=== PATIENT | female | born 1970 | race African-American/Black ===

== ENCOUNTER 2017-03-04 15:47 | Inpatient (IN) | payer SELFPAY ==
[~2017-03-04] VITALS: Ht 167.6 cm; Wt 110.7 kg
[2017-03-04] MEDS ORDERED: IV NORMAL SALINE 1000ML BAG 1,000 ML IV ONE ×2 (16:15→20:30)
[2017-03-04 16:34] LABS: BILIRUBIN,URINE NEGATIVE (NEG); GLUCOSE,URINE NEGATIVE (NEG); NITRITE,URINE NEGATIVE (NEG); PROTEIN,URINE NEGATIVE (NEG-TRACE)
[2017-03-04 16:41] LABS: BASO # 0.1 x10^3/uL (0.0-0.2); BASO % 1 % (0-3); EOS % 1 % (0-3); HEMATOCRIT 25.7 % (36.0-47.0); HEMOGLOBIN 7.4 g/dL (12.0-15.5); LYMPH # 2.3 x10^3/uL (1.0-4.8); LYMPH % 31 % (24-48); MEAN CORPUSCULAR HEMOGLOBIN 17 pg (25-35); MEAN CORPUSCULAR HGB CONC 29 g/dL (31-37); MEAN CORPUSCULAR VOLUME 60 fL (79-100); MONO % 9 % (0-9); NEUT % 58 % (31-73); PLATELET COUNT 523 x10^3/uL (140-400); RED BLOOD COUNT 4.32 x10^6/uL (3.50-5.40); WHITE BLOOD COUNT 7.5 x10^3/uL (4.0-11.0)
--- NOTE | 2017-03-04 16:46 | RAD ---
Examination: Single frontal view of the chest History: history of dizziness Comparison: None available Findings: The cardiomediastinal silhouette grossly appears unremarkable. There is no acute infiltrate or visualized pneumothorax. Impression: No acute cardiopulmonary findings.
[2017-03-04 16:48] LABS: BACTERIA,URINE MOD /HPF (0-FEW); RBC,URINE 0 /HPF (0-2); SQUAMOUS EPITHELIAL CELL,UR MANY /LPF
[2017-03-04 17:18] LABS: ANISOCYTOSIS SLIGHT; HYPOCHROMIA MOD; MICROCYTOSIS MOD; PLT ESTIMATE INCREASED (ADEQUATE); POIKILOCYTOSIS SLIGHT; POLYCHROMASIA SLIGHT
[2017-03-04 17:19] LABS: OVALOCYTES PRESENT; TEAR DROP CELLS PRESENT
--- NOTE | 2017-03-04 17:21 | PHYS DOC ---
Past Medical History Past Medical History: No Pertinent History Past Surgical History: Tubal ligation Alcohol Use: Occasionally Drug Use: Marijuana Adult General Chief Complaint Chief Complaint: DIZZY/LIGHT HEADED HPI HPI 46-year-old female with no significant past medical history now complaining of intermittent lightheadedness/near syncope with nausea and occasional diaphoresis. Patient's been having these symptoms over the last several months, but has been worsening recently. It commonly happens after standing up. She has no exertional symptoms specifically no exertional chest pain. She was evaluated for it within the last several months and results were unremarkable. Patient is not having chest pain , palpitations, or shortness of breath. She has no headache or stiff neck. No fevers chills sweats or shaking chills. She reports normal bowel bladder habits and no abdominal pain. She does report heavier than normal periods recently passing multiple clots. She is not currently menstruating. Patient is not anticoagulated and has no history of coagulopathy. Review of Systems Review of Systems Constitutional: Denies fever or chills [] Eyes: Denies change in visual acuity, redness, or eye pain [] HENT: Denies nasal congestion or sore throat [] Respiratory: Denies cough or shortness of breath [] Cardiovascular: No additional information not addressed in HPI [] GI: Denies abdominal pain, nausea, vomiting, bloody stools or diarrhea [] : Denies dysuria or hematuria [] Musculoskeletal: Denies back pain or joint pain [] Integument: Denies rash or skin lesions [] Neurologic: Denies headache, focal weakness or sensory changes [] Endocrine: Denies polyuria or polydipsia [] Current Medications Current Medications Current Medications Medications (Trade) Dose Ordered Sig/Ruiz Start Time Stop Time Status Last Admin Dose Admin Sodium Chloride 1,000 ml @ 999 mls/hr 1X ONCE 03/04/17 20:30 03/04/17 21:30 03/04/17 20:55 999 MLS/HR Allergies Allergies Allergies Coded Allergies Type Severity Reaction Last Updated Verified Penicillins Allergy Intermediate Rash 03/04/17 Yes Physical Exam Physical Exam Appearing patient no acute distress mucous membranes moist no tachycardia clear lungs benign abdomen normal remedies nonfocal neuro, mild subconjunctival pallor Constitutional: Well developed, well nourished, no acute distress, non-toxic appearance. [] HENT: Normocephalic, atraumatic, bilateral external ears normal, oropharynx moist, no oral exudates, nose normal. [] Eyes: PERRLA, EOMI, conjunctiva mildly pale, no discharge. [] Neck: Normal range of motion, no tenderness, supple, no stridor. [] Cardiovascular:Heart rate regular rhythm, no murmur [] Lungs & Thorax: Bilateral breath sounds clear to auscultation [] Abdomen: Bowel sounds normal, soft, no tenderness, no masses, no pulsatile masses. [] Skin: Warm, dry, no erythema, no rash. [] Back: No tenderness, no CVA tenderness. [] Extremities: No tenderness, no cyanosis, no clubbing, ROM intact, no edema. [] Neurologic: Alert and oriented X 3, normal motor function, normal sensory function, no focal deficits noted. [] Psychologic: Affect normal, judgement normal, mood normal. [] Current Patient Data Vital Signs Vital Signs Date Time Temp Pulse Resp B/P (MAP) Pulse Ox O2 Delivery O2 Flow Rate FiO2 03/04/17 15:58 98.4 79 18 145/68 (93) 99 Room Air 98.4 Lab Values Laboratory Tests Test 03/04/17 10:55 03/04/17 15:59 03/04/17 16:15 03/04/17 17:25 Urine Color Yellow Urine Clarity Cloudy Urine pH 6.0 Urine Specific [place] 1.020 Urine Protein Negative mg/dL (NEG-TRACE) Urine Glucose (UA) Negative mg/dL (NEG) Urine Ketones (Stick) Negative mg/dL (NEG) Urine Blood Negative (NEG) Urine Nitrite Negative (NEG) Urine Bilirubin Negative (NEG) Urine Urobilinogen Dipstick 1.0 mg/dL (0.2 mg/dL) Urine Leukocyte Esterase Moderate (NEG) Urine RBC 0 /HPF (0-2) Urine WBC 11-20 /HPF (0-4) Urine Squamous Epithelial Cells Many /LPF Urine Bacteria Mod /HPF (0-FEW) Urine Mucus Slight /LPF POC Urine HCG, Qualitative Hcg negative (Negative) White Blood Count 7.5 x10^3/uL (4.0-11.0) Red Blood Count 4.32 x10^6/uL (3.50-5.40) Hemoglobin 7.4 g/dL (12.0-15.5) L Hematocrit 25.7 % (36.0-47.0) L Mean Corpuscular Volume 60 fL (79-100) L Mean Corpuscular Hemoglobin 17 pg (25-35) L Mean Corpuscular Hemoglobin Concent 29 g/dL (31-37) L Red Cell Distribution Width 19.0 % (11.5-14.5) H Platelet Count 523 x10^3/uL (140-400) H Neutrophils (%) (Auto) 58 % (31-73) Lymphocytes (%) (Auto) 31 % (24-48) Monocytes (%) (Auto) 9 % (0-9) Eosinophils (%) (Auto) 1 % (0-3) Basophils (%) (Auto) 1 % (0-3) Neutrophils # (Auto) 4.4 x10^3uL (1.8-7.7) Lymphocytes # (Auto) 2.3 x10^3/uL (1.0-4.8) Monocytes # (Auto) 0.7 x10^3/uL (0.0-1.1) Eosinophils # (Auto) 0.1 x10^3/uL (0.0-0.7) Basophils # (Auto) 0.1 x10^3/uL (0.0-0.2) Platelet Estimate Increased (ADEQUATE) Large Platelets Present Polychromasia Slight Hypochromasia Mod Poikilocytosis Slight Anisocytosis Slight Microcytosis Mod Tear Drop Cells Present Ovalocytes Present Sodium Level 138 mmol/L (136-145) Potassium Level 4.0 mmol/L (3.5-5.1) Chloride Level 102 mmol/L (98-107) Carbon Dioxide Level 28 mmol/L (21-32) Anion Gap 8 (6-14) Blood Urea Nitrogen 9 mg/dL (7-20) Creatinine 0.6 mg/dL (0.6-1.0) Estimated GFR (Cockcroft-Gault) 129.1 BUN/Creatinine Ratio 15 (6-20) Glucose Level 103 mg/dL (70-99) H Calcium Level 9.0 mg/dL (8.5-10.1) Total Bilirubin 0.2 mg/dL (0.2-1.0) Aspartate Amino Transferase (AST) 16 U/L (15-37) Alanine Aminotransferase (ALT) 11 U/L (14-59) L Alkaline Phosphatase 71 U/L (46-116) Troponin I Quantitative < 0.017 ng/mL (0.000-0.055) Total Protein 8.1 g/dL (6.4-8.2) Albumin 3.5 g/dL (3.4-5.0) Albumin/Globulin Ratio 0.8 (1.0-1.7) L Thyroid Stimulating Hormone (TSH) 0.877 uIU/mL (0.358-3.74) Laboratory Tests 03/04/17 16:15 Laboratory Tests 03/04/17 17:25 EKG EKG Normal sinus rhythm at 73 left axis deviation no STEMI interpreted by me[] Radiology/Procedures Radiology/Procedures Chest x-ray no acute disease interpreted by me . Specifically No mediastinal mass Course & Med Decision Making Course & Med Decision Making Pertinent Labs and Imaging studies reviewed. (See chart for details) Signs and symptoms consistent with orthostasis. Full workup pending to rule out contributory etiology EKG unremarkable with normal sinus rhythm at 73. Patient hemodynamically stable. Hemoglobin result 7.4. No history of black or bloody stool. Brown stool on rectal exam done with nurse Jessica present. Results of Hemoccult pending in the lab. Patient does not have contraindications for transfusion and given symptomatic anemia of 7.4 pre-hydration anticipate equilibration below 7 and will initiate blood transfusion. Patient verbally consents to this and she has no anabaptism convictions that would preclude administration of blood. Case discussed with Dr. Drew Moreno hospitalist on-call is aware of history and findings and agrees with inpatient admission to a telemetry bed bleeding workup of severe anemia, transfusion, and further treatment as needed Critical care 35 minutes Dragon Disclaimer Dragon Disclaimer This electronic medical record was generated, in whole or in part, using a voice recognition dictation system. Departure Departure Impression: Primary Impression: Dizziness Additional Impressions: Orthostasis Severe anemia Near syncope Disposition: 09 ADMITTED INPATIENT Admitting Physician: Miranda Moreno Condition: STABLE Referrals: UNKNOWN PCP NAME (PCP) Problem Qualifiers SIENNA BRADLEY MD Mar 04, 2017 17:21
[2017-03-04 17:52] LABS: CREATININE 0.6 mg/dL (0.6-1.0); GFR 129.1
[2017-03-04 17:58] LABS: ALBUMIN 3.5 g/dL (3.4-5.0); ALBUMIN/GLOBULIN RATIO 0.8 (1.0-1.7); TOTAL BILIRUBIN 0.2 mg/dL (0.2-1.0); TOTAL PROTEIN 8.1 g/dL (6.4-8.2)
--- NOTE | 2017-03-04 18:14 | EKG ---
[facility] [address] [place] [address] Test Date: 2017-03-04 Test Time: 16:05:21 Pat Name: GEN HUGGINS Department: Room: Gender: F Manager Implementation: : 1970 Requested By: SIENNA BRADLEY Order Number: [id number] Reading MD: Rebekah Deleon Measurements Intervals [place] Rate: 73 P: 45 [place]: 158 QRS: -14 QRSD: 86 T: 20 QT: 384 QTc: 427 Interpretive Statements SINUS RHYTHM LEFTWARD AXIS NORMAL ECG Electronically Signed On 03-07-2017 16:06:53 CDT by Rebekah Deleon
[2017-03-04 22:09] LABS: PROTHROMBIN TIME PATIENT 12.6 SEC (11.7-14.0)
[2017-03-04 23:15] VITALS: BP 137/39
[2017-03-05] VITALS (9 sets, daily range): BP systolic 105–137; BP diastolic 60–89
[2017-03-05 03:44] LABS: HEMATOCRIT 24.6 % (36.0-47.0); HEMOGLOBIN 7.3 g/dL (12.0-15.5); RED BLOOD COUNT 3.83 x10^6/uL (3.50-5.40); RED CELL DISTRIBUTION WIDTH 20.9 % (11.5-14.5); WHITE BLOOD COUNT 6.7 x10^3/uL (4.0-11.0)
[2017-03-05 07:08] LABS: NEG OBC FOB NEG; POS OBC FOB POS
[2017-03-05 08:44] LABS: HEMATOCRIT 25.6 % (36.0-47.0); HEMOGLOBIN 7.7 g/dL (12.0-15.5); RED BLOOD COUNT 4.01 x10^6/uL (3.50-5.40); RED CELL DISTRIBUTION WIDTH 21.5 % (11.5-14.5); WHITE BLOOD COUNT 8.6 x10^3/uL (4.0-11.0)
[2017-03-05] MEDS ORDERED: ONDANSETRON PF 4 MG/2 ML VIAL. IV PRN (09:45)
[2017-03-05] MEDS ORDERED: ACETAMINOPHEN 500 MG TABLET PO PRN (09:45)
[2017-03-05 10:27] LABS: % SAT IRON 4 % (15-34); IRON,SERUM 16 ug/dL (50-170)
--- NOTE | 2017-03-05 10:47 | RAD ---
INDICATION: Menorrhagia COMPARISON: None. TECHNIQUE: Grayscale and color ultrasound images uterus and adnexa. FINDINGS: Uterus: 14.8 x 9.3 x 9.1 cm. Endometrial Stripe: 8 mm. Right Ovary: 2.6 x 2.4 x 2.4 cm. Left Ovary: 4.1 x 2.1 x 1.3 cm. At the anterior aspect of the uterus there is a large heterogenous masslike structure measuring 98 x 84 x 68 mm. In addition there is a smaller masslike structure posteriorly measuring 22 x 22 mm. IMPRESSION: 1. There are couple of masslike structure seen within the uterus. Could be from uterine fibroids.
--- NOTE | 2017-03-05 11:23 | PDOC1 ---
History and Physical Date of Admission Date of Admission DATE: 03/05/17 TIME: 11:16 Identification/Chief Complaint Chief Complaint dizzy, lightheaded, weak Problems: Source Source: Caregiver, Chart review, Patient History of Present Illness History of Present Illness 46 y.o AA female, no meds at home, otherwise healthy, admits to maybe mos of dizzy, lightheadedness, never sough medical help, Sxs got worse wendy when assuming upright position, so went to ER and hgb 7.4, news to her, STool occult neg, Admits to heavy periods, 7 days duration, uses tampons, passes clots, NO hx blood dyscrasia in family, Got a unit of blood already at ER, hgb 7.7 I CANNOT DO MCKAYLA work up or SICKle cell work up bec already got blood. I will do pelvic SONO, consult obgyne and rpt HH ascencion Claims she feels better, if still symptomatic will transfuse more MCV 60s Past sx:tubal ligation, already has completed family and is uninterested in having kids anymore Past Medical History Cardiovascular: No pertinent hx Pulmonary: No pertinent hx GI: No pertinent hx Heme/Onc: No pertinent hx Psych: No pertinent hx Rheumatologic: No pertinent hx Infectious disease: No pertinent hx ENT: No pertinent hx Renal/: No pertinent hx Endocrine: No pertinent hx Dermatology: No pertinent hx Past Surgical History Past Surgical History: Tubal Ligation Family History Family History: No Significant Social History Smoke: No ALCOHOL: none Drugs: None Current Problem List Problem List Problems Medical Problems: (1) Dizziness Status: Acute (2) Near syncope Status: Acute (3) Orthostasis Status: Acute (4) Orthostatic hypotension Status: Acute (5) Severe anemia Status: Acute Problems: Current Medications Current Medications Current Medications Sodium Chloride 1,000 ml @ 999 mls/hr 1X ONCE IV Last administered on 16:34; Start 03/04/17 at 16:15; Stop 03/04/17 at 17:16; Status DC Sodium Chloride 1,000 ml @ 999 mls/hr 1X ONCE IV Last administered on 20:55; Start 03/04/17 at 20:30; Stop 03/04/17 at 21:30; Status DC Acetaminophen (Tylenol) 500 mg PRN Q6HRS PRN PO MILD PAIN / TEMP; Start at 09:45 Ondansetron HCl (Zofran) 4 mg PRN Q6HRS PRN IV NAUSEA/VOMITING; Start at 09:45 Allergies Allergies: Coded Allergies: Penicillins (Verified Allergy, Intermediate, Rash, 03/04/17) ROS Review of System as per HPI , all 14 pt reviewed, neg Physical Exam General: Alert, Oriented X3, Cooperative, No acute distress HEENT: Atraumatic, PERRLA, EOMI Lungs: Clear to auscultation, Normal air movement Heart: S1S2, RRR, no thrills, no rubs, no gallops, no murmurs Cardiovascular: S1, S2 Breasts: Normal, Rt breast nml w/o mass, Lt breast nml w/o mass, Nipples normal Abdomen: Normal bowel sounds, Soft, No tenderness, No hepatosplenomegaly, No masses Rectal Exam: not examined PELVIC: Nml ext genitalia Extremities: No clubbing, No cyanosis, No edema, Normal pulses, No tenderness/ swelling Skin: No rashes, No breakdown, No significant lesion Neuro: Normal gait, Normal speech, Strength at 5/5 X4 ext, Normal tone, Sensation intact, Cranial nerves 3-12 NL, Reflexes 2+ Psych/Mental Status: Mental status NL, Mood NL Vitals Vitals Vital Signs Date Time Temp Pulse Resp B/P (MAP) Pulse Ox O2 Delivery O2 Flow Rate FiO2 03/05/17 07:00 98.1 72 18 111/63 (79) 97 Room Air 98.1 Labs Labs Laboratory Tests Test 03/04/17 10:55 03/04/17 15:59 03/04/17 16:01 03/04/17 16:15 Urine Color Yellow Urine Clarity Cloudy Urine pH 6.0 Urine Specific [place] 1.020 Urine Protein Negative mg/dL (NEG-TRACE) Urine Glucose (UA) Negative mg/dL (NEG) Urine Ketones (Stick) Negative mg/dL (NEG) Urine Blood Negative (NEG) Urine Nitrite Negative (NEG) Urine Bilirubin Negative (NEG) Urine Urobilinogen Dipstick 1.0 mg/dL (0.2 mg/dL) Urine Leukocyte Esterase Moderate (NEG) Urine RBC 0 /HPF (0-2) Urine WBC 11-20 /HPF (0-4) Urine Squamous Epithelial Cells Many /LPF Urine Bacteria Mod /HPF (0-FEW) Urine Mucus Slight /LPF Bedside Urine HCG, Qualitative Hcg negative (Negative) Prothrombin Time 12.6 SEC (11.7-14.0) Prothromb Time International Ratio 1.0 (0.8-1.1) Activated Partial Thromboplast Time 27 SEC (24-38) White Blood Count 7.5 x10^3/uL (4.0-11.0) Red Blood Count 4.32 x10^6/uL (3.50-5.40) Hemoglobin 7.4 g/dL (12.0-15.5) Hematocrit 25.7 % (36.0-47.0) Mean Corpuscular Volume 60 fL (79-100) Mean Corpuscular Hemoglobin 17 pg (25-35) Mean Corpuscular Hemoglobin Concent 29 g/dL (31-37) Red Cell Distribution Width 19.0 % (11.5-14.5) Platelet Count 523 x10^3/uL (140-400) Neutrophils (%) (Auto) 58 % (31-73) Lymphocytes (%) (Auto) 31 % (24-48) Monocytes (%) (Auto) 9 % (0-9) Eosinophils (%) (Auto) 1 % (0-3) Basophils (%) (Auto) 1 % (0-3) Neutrophils # (Auto) 4.4 x10^3uL (1.8-7.7) Lymphocytes # (Auto) 2.3 x10^3/uL (1.0-4.8) Monocytes # (Auto) 0.7 x10^3/uL (0.0-1.1) Eosinophils # (Auto) 0.1 x10^3/uL (0.0-0.7) Basophils # (Auto) 0.1 x10^3/uL (0.0-0.2) Platelet Estimate Increased (ADEQUATE) Large Platelets Present Polychromasia Slight Hypochromasia Mod Poikilocytosis Slight Anisocytosis Slight Microcytosis Mod Tear Drop Cells Present Ovalocytes Present Test 03/04/17 17:25 03/05/17 00:00 03/05/17 03:20 03/05/17 08:40 Sodium Level 138 mmol/L (136-145) Potassium Level 4.0 mmol/L (3.5-5.1) Chloride Level 102 mmol/L (98-107) Carbon Dioxide Level 28 mmol/L (21-32) Anion Gap 8 (6-14) Blood Urea Nitrogen 9 mg/dL (7-20) Creatinine 0.6 mg/dL (0.6-1.0) Estimated GFR (Cockcroft-Gault) 129.1 BUN/Creatinine Ratio 15 (6-20) Glucose Level 103 mg/dL (70-99) Calcium Level 9.0 mg/dL (8.5-10.1) Total Bilirubin 0.2 mg/dL (0.2-1.0) Aspartate Amino Transf (AST/SGOT) 16 U/L (15-37) Alanine Aminotransferase (ALT/SGPT) 11 U/L (14-59) Alkaline Phosphatase 71 U/L (46-116) Troponin I Quantitative < 0.017 ng/mL (0.000-0.055) Total Protein 8.1 g/dL (6.4-8.2) Albumin 3.5 g/dL (3.4-5.0) Albumin/Globulin Ratio 0.8 (1.0-1.7) Thyroid Stimulating Hormone (TSH) 0.877 uIU/mL (0.358-3.74) Stool Occult Blood Negative (NEG) White Blood Count 6.7 x10^3/uL (4.0-11.0) 8.6 x10^3/uL (4.0-11.0) Red Blood Count 3.83 x10^6/uL (3.50-5.40) 4.01 x10^6/uL (3.50-5.40) Hemoglobin 7.3 g/dL (12.0-15.5) 7.7 g/dL (12.0-15.5) Hematocrit 24.6 % (36.0-47.0) 25.6 % (36.0-47.0) Mean Corpuscular Volume 64 fL (79-100) 64 fL (79-100) Mean Corpuscular Hemoglobin 19 pg (25-35) 19 pg (25-35) Mean Corpuscular Hemoglobin Concent 30 g/dL (31-37) 30 g/dL (31-37) Red Cell Distribution Width 20.9 % (11.5-14.5) 21.5 % (11.5-14.5) Platelet Count 387 x10^3/uL (140-400) 402 x10^3/uL (140-400) Iron Level 16 ug/dL (50-170) Total Iron Binding Capacity 387 ug/dL (250-450) Iron Saturation 4 % (15-34) Laboratory Tests Test 03/04/17 15:59 03/04/17 16:01 03/04/17 16:15 03/04/17 17:25 Bedside Urine HCG, Qualitative Hcg negative (Negative) Prothrombin Time 12.6 SEC (11.7-14.0) Prothromb Time International Ratio 1.0 (0.8-1.1) Activated Partial Thromboplast Time 27 SEC (24-38) White Blood Count 7.5 x10^3/uL (4.0-11.0) Red Blood Count 4.32 x10^6/uL (3.50-5.40) Hemoglobin 7.4 g/dL (12.0-15.5) Hematocrit 25.7 % (36.0-47.0) Mean Corpuscular Volume 60 fL (79-100) Mean Corpuscular Hemoglobin 17 pg (25-35) Mean Corpuscular Hemoglobin Concent 29 g/dL (31-37) Red Cell Distribution Width 19.0 % (11.5-14.5) Platelet Count 523 x10^3/uL (140-400) Neutrophils (%) (Auto) 58 % (31-73) Lymphocytes (%) (Auto) 31 % (24-48) Monocytes (%) (Auto) 9 % (0-9) Eosinophils (%) (Auto) 1 % (0-3) Basophils (%) (Auto) 1 % (0-3) Neutrophils # (Auto) 4.4 x10^3uL (1.8-7.7) Lymphocytes # (Auto) 2.3 x10^3/uL (1.0-4.8) Monocytes # (Auto) 0.7 x10^3/uL (0.0-1.1) Eosinophils # (Auto) 0.1 x10^3/uL (0.0-0.7) Basophils # (Auto) 0.1 x10^3/uL (0.0-0.2) Platelet Estimate Increased (ADEQUATE) Large Platelets Present Polychromasia Slight Hypochromasia Mod Poikilocytosis Slight Anisocytosis Slight Microcytosis Mod Tear Drop Cells Present Ovalocytes Present Sodium Level 138 mmol/L (136-145) Potassium Level 4.0 mmol/L (3.5-5.1) Chloride Level 102 mmol/L (98-107) Carbon Dioxide Level 28 mmol/L (21-32) Anion Gap 8 (6-14) Blood Urea Nitrogen 9 mg/dL (7-20) Creatinine 0.6 mg/dL (0.6-1.0) Estimated GFR (Cockcroft-Gault) 129.1 BUN/Creatinine Ratio 15 (6-20) Glucose Level 103 mg/dL (70-99) Calcium Level 9.0 mg/dL (8.5-10.1) Total Bilirubin 0.2 mg/dL (0.2-1.0) Aspartate Amino Transf (AST/SGOT) 16 U/L (15-37) Alanine Aminotransferase (ALT/SGPT) 11 U/L (14-59) Alkaline Phosphatase 71 U/L (46-116) Troponin I Quantitative < 0.017 ng/mL (0.000-0.055) Total Protein 8.1 g/dL (6.4-8.2) Albumin 3.5 g/dL (3.4-5.0) Albumin/Globulin Ratio 0.8 (1.0-1.7) Thyroid Stimulating Hormone (TSH) 0.877 uIU/mL (0.358-3.74) Test 03/05/17 00:00 03/05/17 03:20 03/05/17 08:40 Stool Occult Blood Negative (NEG) White Blood Count 6.7 x10^3/uL (4.0-11.0) 8.6 x10^3/uL (4.0-11.0) Red Blood Count 3.83 x10^6/uL (3.50-5.40) 4.01 x10^6/uL (3.50-5.40) Hemoglobin 7.3 g/dL (12.0-15.5) 7.7 g/dL (12.0-15.5) Hematocrit 24.6 % (36.0-47.0) 25.6 % (36.0-47.0) Mean Corpuscular Volume 64 fL (79-100) 64 fL (79-100) Mean Corpuscular Hemoglobin 19 pg (25-35) 19 pg (25-35) Mean Corpuscular Hemoglobin Concent 30 g/dL (31-37) 30 g/dL (31-37) Red Cell Distribution Width 20.9 % (11.5-14.5) 21.5 % (11.5-14.5) Platelet Count 387 x10^3/uL (140-400) 402 x10^3/uL (140-400) Iron Level 16 ug/dL (50-170) Total Iron Binding Capacity 387 ug/dL (250-450) Iron Saturation 4 % (15-34) VTE Prophylaxis Ordered VTE Prophylaxis Devices: Contraindicated VTE Pharmacological Prophylaxi: Contraindicated Assessment/Plan Assessment/Plan 1. Symptomatic anemia, microcytic 2. MEnorrhagia 3. Obesity BMI 39 PLAN: Pelvic sono OB gyne consult WOuld start ferrous supplements HH ascencion See if she gets symptomatic with her walk today, transfuse if this happens dw pt and family and RN at bedside MIKAEL RAMOS MD Mar 05, 2017 11:22
[2017-03-05] MEDS: FERROUS SULFATE 325 MG TABLET. PO SCH (11:42)
--- NOTE | 2017-03-05 14:37 | PDOC2 ---
CONSULT Date of Consult Date of Consult DATE: 03/05/17 TIME: 14:30 Reason for Consult Reason for Consult: vaginal bleeding Referring Physician Referring Physician: Dr. Martel Identification/Chief Complaint Chief Complaint Dizziness Problems: Source Source: Chart review, Patient History of Present Illness Reason for Visit: 46 y/o presented to ED with c/o severe dizziness and fatigue for the past few days. She reports heavy menses with passage of large blood clots for past 5 years that has worsened in the last year. She has h/o BTL for control. She was given 1 Unit PRBC's for severe anemia. LMP was 02/26/17. No vaginal bleeding today. Past Medical History Cardiovascular: No pertinent hx Pulmonary: No pertinent hx GI: No pertinent hx Heme/Onc: No pertinent hx Psych: No pertinent hx Rheumatologic: No pertinent hx Infectious disease: No pertinent hx ENT: No pertinent hx Renal/: No pertinent hx Endocrine: No pertinent hx Dermatology: No pertinent hx Past Surgical History Past Surgical History: Tubal Ligation Family History Family History: No Significant Social History No ALCOHOL: none Drugs: None Current Problem List Problem List Problems Medical Problems: (1) Dizziness Status: Acute (2) Near syncope Status: Acute (3) Orthostasis Status: Acute (4) Orthostatic hypotension Status: Acute (5) Severe anemia Status: Acute Current Medications Current Medications Current Medications Sodium Chloride 1,000 ml @ 999 mls/hr 1X ONCE IV Last administered on 16:34; Start 03/04/17 at 16:15; Stop 03/04/17 at 17:16; Status DC Sodium Chloride 1,000 ml @ 999 mls/hr 1X ONCE IV Last administered on 20:55; Start 03/04/17 at 20:30; Stop 03/04/17 at 21:30; Status DC Acetaminophen (Tylenol) 500 mg PRN Q6HRS PRN PO MILD PAIN / TEMP Last administered on 03/05/17 11:42; Start 03/05/17 at 09:45 Ondansetron HCl (Zofran) 4 mg PRN Q6HRS PRN IV NAUSEA/VOMITING; Start at 09:45 Ferrous Sulfate (Feosol) 325 mg DAILYWBKFT PO Last administered on 03/05/17 11:42; Start 03/05/17 at 11:30 Allergies Allergies: Coded Allergies: Penicillins (Verified Allergy, Intermediate, Rash, 03/04/17) ROS General: YES: Fatigue, Malaise, No: Chills, Night Sweats, Appetite, Other PSYCHOLOGICAL ROS: No: Anxiety, Behavioral Disorder, Concentration difficultie , Decreased libido, Depression, Disorientation, Hallucinations, Hostility, Irritablity, Memory difficulties, Mood Swings, Obsessive thoughts, Physical abuse, Sexual abuse, Sleep disturbances, Suicidal ideation, Other Eyes: No Blurry vision, No Decreased vision, No Double vision, No Dry eyes, No Excessive tearing, No Eye Pain, No Itchy Eyes, No Loss of vision, No Photophobia , No Scotomata, No Uses contacts, No Uses glasses, No Other HEENT: No: Heacaches, Visual Changes, Hearing change, Nasal congestion, Nasal discharge, Oral lesions, Sinus pain, Sore Throat, Epistaxis, Sneezing, Snoring, Tinnitus, Vertigo, Vocal changes, Other ALLERGY AND IMMUNOLOGY: No: Hives, Insect Bite Sensitivity, Itchy/Watery Eyes, Nasal Congestion, Post Nasal Drip, Seasonal Allergies, Other Hematological and Lymphatic: No: Bleeding Problems, Blood Clots, Blood Transfusions, Brusing, Night Sweats, Pallor, Swollen Lymph Nodes, Other ENDOCRINE: No: Breast Changes, Galactorrhea, Hair Pattern Changes, Hot Flashes , Malaise/lethargy, Mood Swings, Palpitations, Polydipsia/polyuria, Skin Changes , Temperature Intolerance, Unexpected Weight Changes, Other Breast: No New/Changing Breast Lumps, No Nipple changes, No Nipple discharge, No Other Respiratory: No: Cough, Hemoptysis, Orthopnea, Pleuritic Pain, Shortness of breath, SOB with excertion, Sputum Changes, Stridor, Tachypnea, Wheezing, Other Cardiovascular: No Chest Pain, No Palpitations, No Orthopnea, No Paroxysmal Noc. Dyspnea, No Edema, No Lt Headedness, No Other Gastrointestinal: No Nausea, No Vomiting, No Abdominal Pain, No Diarrhea, No Constipation, No Melena, No Hematochezia, No Other Genitourinary: No Dysuria, No Frequency, No Incontinence, No Hematuria, No Retention, No Discharge, No Urgency, No Pain, No Flank Pain, No Other, No , No , No , No , No , No , No Musculoskeletal: No Gait Disturbance, No Joint Pain, No Joint Stiffness, No Joint Swelling, No Muscle Pain, No Muscular Weakness, No Pain In:, No Swelling In:, No Other Neurological: No Behavorial Changes, No Bowel/Bladder ControlChng, No Confusion , No Dizziness, No Gait Disturbance, No Headaches, No Impaired Coord/balance, No Memory Loss, No Numbness/Tingling, No Seizures, No Speech Problems, No Tremors, No Visual Changes, No Weakness, No Other Physical Exam General: Alert, Cooperative, No acute distress HEENT: Atraumatic Lungs: Clear to auscultation Heart: Regular rate Abdomen: Normal bowel sounds, Soft, No tenderness, No masses Extremities: No edema Psych/Mental Status: Mental status NL Vitals VITALS Vital Signs Date Time Temp Pulse Resp B/P (MAP) Pulse Ox O2 Delivery O2 Flow Rate FiO2 03/05/17 11:00 97.9 74 18 126/63 (84) 98 Room Air 97.9 Labs Labs Laboratory Tests Test 03/04/17 10:55 03/04/17 15:59 03/04/17 16:01 03/04/17 16:15 Urine Color Yellow Urine Clarity Cloudy Urine pH 6.0 Urine Specific [place] 1.020 Urine Protein Negative mg/dL (NEG-TRACE) Urine Glucose (UA) Negative mg/dL (NEG) Urine Ketones (Stick) Negative mg/dL (NEG) Urine Blood Negative (NEG) Urine Nitrite Negative (NEG) Urine Bilirubin Negative (NEG) Urine Urobilinogen Dipstick 1.0 mg/dL (0.2 mg/dL) Urine Leukocyte Esterase Moderate (NEG) Urine RBC 0 /HPF (0-2) Urine WBC 11-20 /HPF (0-4) Urine Squamous Epithelial Cells Many /LPF Urine Bacteria Mod /HPF (0-FEW) Urine Mucus Slight /LPF Bedside Urine HCG, Qualitative Hcg negative (Negative) Prothrombin Time 12.6 SEC (11.7-14.0) Prothromb Time International Ratio 1.0 (0.8-1.1) Activated Partial Thromboplast Time 27 SEC (24-38) White Blood Count 7.5 x10^3/uL (4.0-11.0) Red Blood Count 4.32 x10^6/uL (3.50-5.40) Hemoglobin 7.4 g/dL (12.0-15.5) Hematocrit 25.7 % (36.0-47.0) Mean Corpuscular Volume 60 fL (79-100) Mean Corpuscular Hemoglobin 17 pg (25-35) Mean Corpuscular Hemoglobin Concent 29 g/dL (31-37) Red Cell Distribution Width 19.0 % (11.5-14.5) Platelet Count 523 x10^3/uL (140-400) Neutrophils (%) (Auto) 58 % (31-73) Lymphocytes (%) (Auto) 31 % (24-48) Monocytes (%) (Auto) 9 % (0-9) Eosinophils (%) (Auto) 1 % (0-3) Basophils (%) (Auto) 1 % (0-3) Neutrophils # (Auto) 4.4 x10^3uL (1.8-7.7) Lymphocytes # (Auto) 2.3 x10^3/uL (1.0-4.8) Monocytes # (Auto) 0.7 x10^3/uL (0.0-1.1) Eosinophils # (Auto) 0.1 x10^3/uL (0.0-0.7) Basophils # (Auto) 0.1 x10^3/uL (0.0-0.2) Platelet Estimate Increased (ADEQUATE) Large Platelets Present Polychromasia Slight Hypochromasia Mod Poikilocytosis Slight Anisocytosis Slight Microcytosis Mod Tear Drop Cells Present Ovalocytes Present Test 03/04/17 17:25 03/05/17 00:00 03/05/17 03:20 03/05/17 08:40 Sodium Level 138 mmol/L (136-145) Potassium Level 4.0 mmol/L (3.5-5.1) Chloride Level 102 mmol/L (98-107) Carbon Dioxide Level 28 mmol/L (21-32) Anion Gap 8 (6-14) Blood Urea Nitrogen 9 mg/dL (7-20) Creatinine 0.6 mg/dL (0.6-1.0) Estimated GFR (Cockcroft-Gault) 129.1 BUN/Creatinine Ratio 15 (6-20) Glucose Level 103 mg/dL (70-99) Calcium Level 9.0 mg/dL (8.5-10.1) Total Bilirubin 0.2 mg/dL (0.2-1.0) Aspartate Amino Transf (AST/SGOT) 16 U/L (15-37) Alanine Aminotransferase (ALT/SGPT) 11 U/L (14-59) Alkaline Phosphatase 71 U/L (46-116) Troponin I Quantitative < 0.017 ng/mL (0.000-0.055) Total Protein 8.1 g/dL (6.4-8.2) Albumin 3.5 g/dL (3.4-5.0) Albumin/Globulin Ratio 0.8 (1.0-1.7) Thyroid Stimulating Hormone (TSH) 0.877 uIU/mL (0.358-3.74) Stool Occult Blood Negative (NEG) White Blood Count 6.7 x10^3/uL (4.0-11.0) 8.6 x10^3/uL (4.0-11.0) Red Blood Count 3.83 x10^6/uL (3.50-5.40) 4.01 x10^6/uL (3.50-5.40) Hemoglobin 7.3 g/dL (12.0-15.5) 7.7 g/dL (12.0-15.5) Hematocrit 24.6 % (36.0-47.0) 25.6 % (36.0-47.0) Mean Corpuscular Volume 64 fL (79-100) 64 fL (79-100) Mean Corpuscular Hemoglobin 19 pg (25-35) 19 pg (25-35) Mean Corpuscular Hemoglobin Concent 30 g/dL (31-37) 30 g/dL (31-37) Red Cell Distribution Width 20.9 % (11.5-14.5) 21.5 % (11.5-14.5) Platelet Count 387 x10^3/uL (140-400) 402 x10^3/uL (140-400) Iron Level 16 ug/dL (50-170) Total Iron Binding Capacity 387 ug/dL (250-450) Iron Saturation 4 % (15-34) Laboratory Tests Test 03/04/17 15:59 03/04/17 16:01 03/04/17 16:15 03/04/17 17:25 Bedside Urine HCG, Qualitative Hcg negative (Negative) Prothrombin Time 12.6 SEC (11.7-14.0) Prothromb Time International Ratio 1.0 (0.8-1.1) Activated Partial Thromboplast Time 27 SEC (24-38) White Blood Count 7.5 x10^3/uL (4.0-11.0) Red Blood Count 4.32 x10^6/uL (3.50-5.40) Hemoglobin 7.4 g/dL (12.0-15.5) Hematocrit 25.7 % (36.0-47.0) Mean Corpuscular Volume 60 fL (79-100) Mean Corpuscular Hemoglobin 17 pg (25-35) Mean Corpuscular Hemoglobin Concent 29 g/dL (31-37) Red Cell Distribution Width 19.0 % (11.5-14.5) Platelet Count 523 x10^3/uL (140-400) Neutrophils (%) (Auto) 58 % (31-73) Lymphocytes (%) (Auto) 31 % (24-48) Monocytes (%) (Auto) 9 % (0-9) Eosinophils (%) (Auto) 1 % (0-3) Basophils (%) (Auto) 1 % (0-3) Neutrophils # (Auto) 4.4 x10^3uL (1.8-7.7) Lymphocytes # (Auto) 2.3 x10^3/uL (1.0-4.8) Monocytes # (Auto) 0.7 x10^3/uL (0.0-1.1) Eosinophils # (Auto) 0.1 x10^3/uL (0.0-0.7) Basophils # (Auto) 0.1 x10^3/uL (0.0-0.2) Platelet Estimate Increased (ADEQUATE) Large Platelets Present Polychromasia Slight Hypochromasia Mod Poikilocytosis Slight Anisocytosis Slight Microcytosis Mod Tear Drop Cells Present Ovalocytes Present Sodium Level 138 mmol/L (136-145) Potassium Level 4.0 mmol/L (3.5-5.1) Chloride Level 102 mmol/L (98-107) Carbon Dioxide Level 28 mmol/L (21-32) Anion Gap 8 (6-14) Blood Urea Nitrogen 9 mg/dL (7-20) Creatinine 0.6 mg/dL (0.6-1.0) Estimated GFR (Cockcroft-Gault) 129.1 BUN/Creatinine Ratio 15 (6-20) Glucose Level 103 mg/dL (70-99) Calcium Level 9.0 mg/dL (8.5-10.1) Total Bilirubin 0.2 mg/dL (0.2-1.0) Aspartate Amino Transf (AST/SGOT) 16 U/L (15-37) Alanine Aminotransferase (ALT/SGPT) 11 U/L (14-59) Alkaline Phosphatase 71 U/L (46-116) Troponin I Quantitative < 0.017 ng/mL (0.000-0.055) Total Protein 8.1 g/dL (6.4-8.2) Albumin 3.5 g/dL (3.4-5.0) Albumin/Globulin Ratio 0.8 (1.0-1.7) Thyroid Stimulating Hormone (TSH) 0.877 uIU/mL (0.358-3.74) Test 03/05/17 00:00 03/05/17 03:20 03/05/17 08:40 Stool Occult Blood Negative (NEG) White Blood Count 6.7 x10^3/uL (4.0-11.0) 8.6 x10^3/uL (4.0-11.0) Red Blood Count 3.83 x10^6/uL (3.50-5.40) 4.01 x10^6/uL (3.50-5.40) Hemoglobin 7.3 g/dL (12.0-15.5) 7.7 g/dL (12.0-15.5) Hematocrit 24.6 % (36.0-47.0) 25.6 % (36.0-47.0) Mean Corpuscular Volume 64 fL (79-100) 64 fL (79-100) Mean Corpuscular Hemoglobin 19 pg (25-35) 19 pg (25-35) Mean Corpuscular Hemoglobin Concent 30 g/dL (31-37) 30 g/dL (31-37) Red Cell Distribution Width 20.9 % (11.5-14.5) 21.5 % (11.5-14.5) Platelet Count 387 x10^3/uL (140-400) 402 x10^3/uL (140-400) Iron Level 16 ug/dL (50-170) Total Iron Binding Capacity 387 ug/dL (250-450) Iron Saturation 4 % (15-34) Assessment/Plan Assessment/Plan A: AUB Fibroids Severe chronic blood loss anemia P: Agree with transfusion and iron treatment. Pt. Counseled on fibroids and medical treatment with Aygestin daily. F/u in clinic in 2 weeks. Thank you for consult. GARCIA OCHOA Jr, MD Mar 05, 2017 14:36
[2017-03-06 03:59] VITALS: BP 115/71
[2017-03-06 04:35] LABS: HEMATOCRIT 25.7 % (36.0-47.0); HEMOGLOBIN 7.6 g/dL (12.0-15.5)
[2017-03-06 07:00] VITALS: BP 136/53
[2017-03-06] MEDS: FERROUS SULFATE 325 MG TABLET. PO SCH (08:56)
[2017-03-06 11:00] VITALS: BP 116/71
--- NOTE | 2017-03-06 12:56 | PDOC ---
PROGRESS NOTES Chief Complaint Chief Complaint AUB Fibroids Dizziness Syncope Orthostasis Orthostatic hypotension Anemia History of Present Illness History of Present Illness A 46 year old woman was admitted due to severe anemia. Today the patient was examined at bedside. She was resting comfortably in bed and looks well. pt. nurse informed us that the pt. complains of a lump in her R inguinal region. It feels like enlarged lymph node so she was given levaquin 500mg 1 PO Qdaily which would also tx her mild UTI. She was also consulted on taking iron supplements due to decrease iron levels. She is also followed by [facility] [employer] [facility]: vaginal bleeding. Probably discharge if ok with specialist. Vitals Vitals Vital Signs Date Time Temp Pulse Resp B/P (MAP) Pulse Ox O2 Delivery O2 Flow Rate FiO2 03/06/17 11:00 97.5 68 20 116/71 (86) 99 Room Air 97.5 Physical Exam General: Alert, Oriented X3, Cooperative, No acute distress Heart: Regular rate, Normal S1, Normal S2 Lungs: Clear Abdomen: Normal bowel sounds, Soft, No tenderness, No masses Extremities: No clubbing, No edema Skin: No rashes, No breakdown, No significant lesion Labs LABS Laboratory Tests Test 03/06/17 04:05 Hemoglobin 7.6 g/dL (12.0-15.5) Hematocrit 25.7 % (36.0-47.0) Mean Corpuscular Hemoglobin Concent 30 g/dL (31-37) Review of Systems Review of Systems fatigue and weakness Assessment and Plan Assessmemt and Plan Problems Medical Problems: (1) Dizziness Status: Acute (2) Near syncope Status: Acute (3) Orthostasis Status: Acute (4) Orthostatic hypotension Status: Acute (5) Severe anemia Status: Acute Assessment: AUB Fibroids Dizziness Syncope Orthostasis Orthostatic hypotension Anemia Plan: Levaquin 500mg for 1 week Agree with specialist input Fe supplements Continue home meds Follow up with PCP or [facility] Problems: Comment Review of Relevant I have reviewed the following items keira (where applicable) has been applied. Labs Laboratory Tests Test 03/04/17 15:59 03/04/17 16:01 03/04/17 16:15 03/04/17 17:25 Bedside Urine HCG, Qualitative Hcg negative (Negative) Prothrombin Time 12.6 SEC (11.7-14.0) Prothromb Time International Ratio 1.0 (0.8-1.1) Activated Partial Thromboplast Time 27 SEC (24-38) White Blood Count 7.5 x10^3/uL (4.0-11.0) Red Blood Count 4.32 x10^6/uL (3.50-5.40) Hemoglobin 7.4 g/dL (12.0-15.5) Hematocrit 25.7 % (36.0-47.0) Mean Corpuscular Volume 60 fL (79-100) Mean Corpuscular Hemoglobin 17 pg (25-35) Mean Corpuscular Hemoglobin Concent 29 g/dL (31-37) Red Cell Distribution Width 19.0 % (11.5-14.5) Platelet Count 523 x10^3/uL (140-400) Neutrophils (%) (Auto) 58 % (31-73) Lymphocytes (%) (Auto) 31 % (24-48) Monocytes (%) (Auto) 9 % (0-9) Eosinophils (%) (Auto) 1 % (0-3) Basophils (%) (Auto) 1 % (0-3) Neutrophils # (Auto) 4.4 x10^3uL (1.8-7.7) Lymphocytes # (Auto) 2.3 x10^3/uL (1.0-4.8) Monocytes # (Auto) 0.7 x10^3/uL (0.0-1.1) Eosinophils # (Auto) 0.1 x10^3/uL (0.0-0.7) Basophils # (Auto) 0.1 x10^3/uL (0.0-0.2) Platelet Estimate Increased (ADEQUATE) Large Platelets Present Polychromasia Slight Hypochromasia Mod Poikilocytosis Slight Anisocytosis Slight Microcytosis Mod Tear Drop Cells Present Ovalocytes Present Sodium Level 138 mmol/L (136-145) Potassium Level 4.0 mmol/L (3.5-5.1) Chloride Level 102 mmol/L (98-107) Carbon Dioxide Level 28 mmol/L (21-32) Anion Gap 8 (6-14) Blood Urea Nitrogen 9 mg/dL (7-20) Creatinine 0.6 mg/dL (0.6-1.0) Estimated GFR (Cockcroft-Gault) 129.1 BUN/Creatinine Ratio 15 (6-20) Glucose Level 103 mg/dL (70-99) Calcium Level 9.0 mg/dL (8.5-10.1) Total Bilirubin 0.2 mg/dL (0.2-1.0) Aspartate Amino Transf (AST/SGOT) 16 U/L (15-37) Alanine Aminotransferase (ALT/SGPT) 11 U/L (14-59) Alkaline Phosphatase 71 U/L (46-116) Troponin I Quantitative < 0.017 ng/mL (0.000-0.055) Total Protein 8.1 g/dL (6.4-8.2) Albumin 3.5 g/dL (3.4-5.0) Albumin/Globulin Ratio 0.8 (1.0-1.7) Thyroid Stimulating Hormone (TSH) 0.877 uIU/mL (0.358-3.74) Test 03/05/17 00:00 03/05/17 03:20 03/05/17 08:40 03/06/17 04:05 Stool Occult Blood Negative (NEG) White Blood Count 6.7 x10^3/uL (4.0-11.0) 8.6 x10^3/uL (4.0-11.0) Red Blood Count 3.83 x10^6/uL (3.50-5.40) 4.01 x10^6/uL (3.50-5.40) Hemoglobin 7.3 g/dL (12.0-15.5) 7.7 g/dL (12.0-15.5) 7.6 g/dL (12.0-15.5) Hematocrit 24.6 % (36.0-47.0) 25.6 % (36.0-47.0) 25.7 % (36.0-47.0) Mean Corpuscular Volume 64 fL (79-100) 64 fL (79-100) Mean Corpuscular Hemoglobin 19 pg (25-35) 19 pg (25-35) Mean Corpuscular Hemoglobin Concent 30 g/dL (31-37) 30 g/dL (31-37) 30 g/dL (31-37) Red Cell Distribution Width 20.9 % (11.5-14.5) 21.5 % (11.5-14.5) Platelet Count 387 x10^3/uL (140-400) 402 x10^3/uL (140-400) Iron Level 16 ug/dL (50-170) Total Iron Binding Capacity 387 ug/dL (250-450) Iron Saturation 4 % (15-34) Laboratory Tests Test 03/06/17 04:05 Hemoglobin 7.6 g/dL (12.0-15.5) Hematocrit 25.7 % (36.0-47.0) Mean Corpuscular Hemoglobin Concent 30 g/dL (31-37) Medications Current Medications Sodium Chloride 1,000 ml @ 999 mls/hr 1X ONCE IV Last administered on 16:34; Start 03/04/17 at 16:15; Stop 03/04/17 at 17:16; Status DC Sodium Chloride 1,000 ml @ 999 mls/hr 1X ONCE IV Last administered on 20:55; Start 03/04/17 at 20:30; Stop 03/04/17 at 21:30; Status DC Acetaminophen (Tylenol) 500 mg PRN Q6HRS PRN PO MILD PAIN / TEMP Last administered on 03/05/17 11:42; Start 03/05/17 at 09:45 Ondansetron HCl (Zofran) 4 mg PRN Q6HRS PRN IV NAUSEA/VOMITING; Start at 09:45 Ferrous Sulfate (Feosol) 325 mg DAILYWBKFT PO Last administered on 03/06/17 08:56; Start 03/05/17 at 11:30 Vitals/I & O Vital Sign - Last 24 Hours 03/05/17 03/05/17 03/05/17 03/06/17 14:44 19:39 23:42 03:59 Temp 98.0 98.4 98.8 98.9 98.0 98.4 98.8 98.9 Pulse 76 75 74 79 Resp 20 18 18 18 B/P (MAP) 124/65 (84) 125/83 (97) 105/69 (81) 115/71 (86) Pulse Ox 98 97 96 97 O2 Delivery Room Air Room Air Room Air Room Air 03/06/17 03/06/17 07:00 11:00 Temp 95.7 97.5 95.7 97.5 Pulse 71 68 Resp 20 20 B/P (MAP) 136/53 (80) 116/71 (86) Pulse Ox 100 99 O2 Delivery Room Air Room Air JOHNSON CORTEZ III DO Mar 06, 2017 12:56
[2017-03-06] MEDS ORDERED: FERR142T13 PO (13:25)
== END 2017-03-06 15:12 | disposition home or self-care (01) | DRG 760 ==
LOC: ER 15:47 → 5 NORTH 21:24
PROVIDERS: ADMIT Internal Medicine; ATTEND Internal Medicine
PROC: 30233N1 Transfusion of Nonautologous Red Blood Cells into Peripheral Vein, Percutaneous Approach (ICD-10-PCS; principal; 2017-03-05)
DX: D25.9 Leiomyoma of uterus, unspecified (principal); N39.0 Urinary tract infection, site not specified; D50.0 Iron deficiency anemia secondary to blood loss (chronic); E66.9 Obesity, unspecified; I95.1 Orthostatic hypotension; F12.90 Cannabis use, unspecified, uncomplicated; N93.9 Abnormal uterine and vaginal bleeding, unspecified; N92.0 Excessive and frequent menstruation with regular cycle; Z68.39 Body mass index [BMI] 39.0-39.9, adult; Z98.51 Tubal ligation status
CPT/HCPCS: 36415; 71010; 76856; 80053; 81001; 81025; 82274; 83540; 83550; 84443; 84484; 85014; 85018; 85025; 85027; 85610; 85730; 86850; 86900; 86901; 86920; 93005; 96360; 96361; J7030; P9016; 99285-25

== ENCOUNTER 2017-08-18 19:52 | Emergency (ER) | payer SELFPAY | END 2017-08-18 21:05 | disposition home or self-care (01) | LOC: ER 19:52 | DX: M65.261 Calcific tendinitis, right lower leg (principal); Z88.0 Allergy status to penicillin; Z98.51 Tubal ligation status | CPT/HCPCS: 73564; 99284 ==

== ENCOUNTER 2018-03-04 17:22 | Observation (INO) | payer OTHER ==
[~2018-03-04] VITALS: Ht 167.6 cm; Wt 112.5 kg
[~2018-03-04 17:22] MED LIST: FERR142T13 PO
[2018-03-04] MEDS ORDERED: diphenhydrAMINE HCL 25 MG CAPSULE PO PRN (20:15)
[2018-03-04] MEDS ORDERED: ACETAMINOPHEN 325 MG TABLET. PO PRN (20:15)
[2018-03-04 20:53] LABS: BASO % 1 % (0-3); EOS # 0.1 x10^3/uL (0.0-0.7); EOS % 1 % (0-3); LYMPH # 2.4 x10^3/uL (1.0-4.8); LYMPH % 32 % (24-48); MEAN CORPUSCULAR HEMOGLOBIN 16 pg (25-35); MEAN CORPUSCULAR HGB CONC 29 g/dL (31-37); MEAN CORPUSCULAR VOLUME 55 fL (79-100); MONO # 0.7 x10^3/uL (0.0-1.1); MONO % 9 % (0-9); NEUT # 4.3 x10^3uL (1.8-7.7); NEUT % 57 % (31-73); PLATELET COUNT 335 x10^3/uL (140-400); RED BLOOD COUNT 2.84 x10^6/uL (3.50-5.40); WHITE BLOOD COUNT 7.5 x10^3/uL (4.0-11.0)
[2018-03-04 20:57] LABS: HEMOGLOBIN 4.4 g/dL (12.0-15.5)
[2018-03-04 20:58] LABS: HEMATOCRIT 15.5 % (36.0-47.0)
[2018-03-04 21:00] VITALS: BP 114/61
[2018-03-04 21:18] LABS: PLT ESTIMATE ADEQUATE (ADEQUATE)
[2018-03-04 21:22] LABS: ANISOCYTOSIS SLIGHT; HYPOCHROMIA MARKED; POIKILOCYTOSIS SLIGHT; POLYCHROMASIA SLIGHT
[2018-03-04 21:23] LABS: MICROCYTOSIS MARKED; OVALOCYTES PRESENT; TEAR DROP CELLS PRESENT
[2018-03-04 22:00] VITALS: BP 114/61
[2018-03-04 22:17] VITALS: BP 114/68
[2018-03-04 23:18] VITALS: BP 107/63
[2018-03-04 23:19] VITALS: BP 107/63
[2018-03-05] VITALS (9 sets, daily range): BP systolic 98–121; BP diastolic 53–74
[2018-03-05 09:30] LABS: BASO # 0.1 x10^3/uL (0.0-0.2); BASO % 1 % (0-3); EOS # 0.1 x10^3/uL (0.0-0.7); EOS % 2 % (0-3); HEMATOCRIT 23.8 % (36.0-47.0); HEMOGLOBIN 7.4 g/dL (12.0-15.5); LYMPH # 2.2 x10^3/uL (1.0-4.8); LYMPH % 34 % (24-48); MEAN CORPUSCULAR HEMOGLOBIN 20 pg (25-35); MEAN CORPUSCULAR HGB CONC 31 g/dL (31-37); MEAN CORPUSCULAR VOLUME 63 fL (79-100); MONO # 0.7 x10^3/uL (0.0-1.1); MONO % 11 % (0-9); NEUT # 3.5 x10^3uL (1.8-7.7); NEUT % 53 % (31-73); PLATELET COUNT 300 x10^3/uL (140-400); RED BLOOD COUNT 3.78 x10^6/uL (3.50-5.40); RED CELL DISTRIBUTION WIDTH 27.8 % (11.5-14.5); WHITE BLOOD COUNT 6.5 x10^3/uL (4.0-11.0)
== END 2018-03-05 14:19 | disposition home or self-care (01) ==
LOC: 3 NORTH 19:56
PROVIDERS: ADMIT Obstetrics & Gynecology; ATTEND Obstetrics & Gynecology
DX: D50.0 Iron deficiency anemia secondary to blood loss (chronic) (principal); D64.9 Anemia, unspecified; R42 Dizziness and giddiness; R55 Syncope and collapse; I95.1 Orthostatic hypotension; D21.9 Benign neoplasm of connective and other soft tissue, unspecified; N93.9 Abnormal uterine and vaginal bleeding, unspecified; E66.9 Obesity, unspecified; Z79.899 Other long term (current) drug therapy; Z88.0 Allergy status to penicillin; Z68.39 Body mass index [BMI] 39.0-39.9, adult
CPT/HCPCS: 36415; 36430; 85025; 86850; 86900; 86901; 86920; G0378; G0379; P9016; Q0163

== ENCOUNTER → 2018-06-10 | Outpatient (CLI) | payer OTHER ==
[2018-03-05 12:00] VITALS: BP 111/67
[~2018-06-10] MED LIST changes: +GADOBUTROL 10 MMOL/10 ML VIAL IV ONE
--- NOTE | 2018-06-10 13:08 | RAD ---
MRI pelvis with and without contrast dated 06/10/2018. Comparison made to pelvic ultrasound dated 03/05/2017. CLINICAL INDICATION: Increasing pelvic pain. Menorrhagia. History of fibroids. TECHNIQUE: Routine multiplanar multisequence MR imaging of pelvis performed with and without the administration of 10 cc Gadavist. FINDINGS: Uterus measures 12.8 x 9.5 x 8.4 cm and is anteverted. There is a large heterogeneous mass at the anterior uterine body that extends inferiorly to the level of the lower uterine segment and measures 8.3 cm maximum dimension. The lesion abuts and slightly displaces the endometrium, without definite submucosal component. There is an additional small nodule at the anterior corpora that measures 3.3 cm in size. Myometrium at the fundus and posterior uterine body is somewhat heterogeneous with a couple possible small nodular foci. The junctional zone is within normal limits in thickness. The endometrium measures about 5 mm thickness. There are several nabothian cysts at the cervix. Right ovary measures 4.1 x 3.1 x 1.6 cm. Left ovary measures 2.8 x 1.4 x 1.6 cm. There are bilateral ovarian follicles. No adnexal mass or free fluid. There are a few borderline enlarged external iliac chain lymph nodes. External iliac lymph node on the left measures 1.5 cm short axis. External iliac chain lymph node on the right measures 0.9 cm short axis.. The urinary bladder is mildly distended and displaced laterally toward the right. There is mild diffuse bladder wall thickening. IMPRESSION: 1. Enlarged myomatous uterus as described above. Large uterine fibroid abuts and displaces the urinary bladder toward the right. 2. There is mild diffuse bladder wall thickening, nonspecific. Consider acute or chronic cystitis. 3. No adnexal mass or free fluid. 4. Mildly enlarged bilateral external iliac and inguinal chain lymph nodes, nonspecific. Electronically signed by: Nikhil Mayfield MD (06/10/2018 1:03 PM) [id number]
== END | disposition home or self-care (01) ==
LOC: MRI 11:03
PROVIDERS: ATTEND Obstetrics & Gynecology
DX: D25.9 Leiomyoma of uterus, unspecified (principal); N88.8 Other specified noninflammatory disorders of cervix uteri; N32.89 Other specified disorders of bladder
CPT/HCPCS: 72197; A9585

== ENCOUNTER 2018-08-10 09:02 | Observation (INO) | payer OTHER ==
[~2018-08-10] VITALS: Ht 167.6 cm; Wt 122.5 kg
[2018-08-10] VITALS (13 sets, daily range): BP systolic 133–167; BP diastolic 72–95
[~2018-08-10 09:02] MED LIST changes: +ACET325T9 PO; -GADOBUTROL 10 MMOL/10 ML VIAL IV ONE; +NAPR500T8 PO
[2018-08-10] MEDS: IV NORMAL SALINE 1000ML BAG 1,000 ML IV SCH ×2 (09:03→20:48)
[2018-08-10] MEDS ORDERED: PROMETHAZINE 12.5 MG TABLET. PO ONE (09:15)
[2018-08-10] MEDS ORDERED: KETOROLAC 30 MG/ML VIAL. IV ONE (09:15)
[2018-08-10] MEDS ORDERED: FERR325T14 PO (09:30)
[2018-08-10 09:38] LABS: BASO % 1 % (0-3); EOS # 0.1 x10^3/uL (0.0-0.7); EOS % 2 % (0-3); HEMATOCRIT 39.8 % (36.0-47.0); HEMOGLOBIN 12.4 g/dL (12.0-15.5); LYMPH # 2.5 x10^3/uL (1.0-4.8); LYMPH % 40 % (24-48); MEAN CORPUSCULAR HEMOGLOBIN 24 pg (25-35); MEAN CORPUSCULAR HGB CONC 31 g/dL (31-37); MEAN CORPUSCULAR VOLUME 78 fL (79-100); MONO # 0.6 x10^3/uL (0.0-1.1); MONO % 10 % (0-9); NEUT # 2.9 x10^3uL (1.8-7.7); NEUT % 47 % (31-73); PLATELET COUNT 270 x10^3/uL (140-400); RED BLOOD COUNT 5.09 x10^6/uL (3.50-5.40); RED CELL DISTRIBUTION WIDTH 17.7 % (11.5-14.5); WHITE BLOOD COUNT 6.1 x10^3/uL (4.0-11.0)
[2018-08-10 09:44] LABS: CALCIUM 8.6 mg/dL (8.5-10.1); CREATININE 0.7 mg/dL (0.6-1.0); GFR 107.2; POTASSIUM 4.2 mmol/L (3.5-5.1)
[2018-08-10 09:46] LABS: PROTHROMBIN TIME PATIENT 12.8 SEC (11.7-14.0)
[2018-08-10] MEDS ORDERED: LIDOCAINE WITH 8.4% SOD BICARB 3 ML DISP.SYRIN. ONE (10:45)
[2018-08-10] MEDS ORDERED: IODIXANOL 320 MG/ML 100 ML VIAL. ONE (10:45)
[2018-08-10] MEDS ORDERED: HEPARIN for ARTERIAL LINE 1,500 ML ONE (10:45)
[2018-08-10] MEDS ORDERED: MIDAZOLAM HCL/PF 5 MG/5 ML VIAL. ONE (10:55)
[2018-08-10] MEDS ORDERED: fentaNYL PF VIAL 250 MCG/5 ML VIAL ONE (10:56)
[2018-08-10 11:23] LABS: PREG TEST PT QUAL NEGATIVE (NEG)
[2018-08-10] MEDS ORDERED: CONTRAST GIVEN. MC PRN (11:45)
[2018-08-10] MEDS ORDERED: LIDOCAINE WITH 8.4% SOD BICARB 3 ML DISP.SYRIN. IJ ONE (11:45)
[2018-08-10] MEDS ORDERED: IODIXANOL 320 MG/ML 100 ML VIAL. IART ONE (11:45)
[2018-08-10] MEDS ORDERED: MIDAZOLAM HCL/PF 5 MG/5 ML VIAL. IV ONE (11:45)
[2018-08-10] MEDS ORDERED: fentaNYL PF VIAL 250 MCG/5 ML VIAL IV ONE (11:45)
[2018-08-10] MEDS ORDERED: IOHEXOL 240 MG/ML 50ML VIAL. IART ONE (11:45)
[2018-08-10] MEDS ORDERED: IV NORMAL SALINE 1000ML BAG 1,000 ML IV PRN (12:45)
[2018-08-10] MEDS ORDERED: NALOXONE 0.4 MG/ML VIAL. IV PRN (13:00)
[2018-08-10] MEDS ORDERED: MORPHINE SULFATE/PF 30 ML IV PRN (13:00)
[2018-08-10] MEDS: DOCUSATE SODIUM 100 MG CAPSULE. PO SCH ×2 (13:00→22:33)
[2018-08-10] MEDS: ONDANSETRON PF 4 MG/2 ML VIAL. IV SCH ×2 (13:42→22:35)
[2018-08-10] MEDS ORDERED: KETOROLAC 30 MG/ML VIAL. IV SCH (14:00)
--- NOTE | 2018-08-10 15:23 | RAD ---
08/10/2018 1. Pelvic angiography 2. Bilateral uterine artery embolization Indication: The patient is a pleasant 48-year-old female with uterine fibroids and significant menorrhagia and painful periods. Patient elects for uterine artery embolization. The risks and benefits of the procedure were discussed the patient. Informed consent was obtained. Timeout procedure was performed. The bilateral groins were prepped and draped using sterile barrier technique. Ultrasound evaluation demonstrates right common femoral artery to be patent. The right common femoral artery was accessed using direct ultrasound guidance. Reference ultrasound images were saved the medical record. Angiograms of the puncture site demonstrate to be within the mid right common femoral artery. Pelvic angiography was performed demonstrating hypertrophy of the bilateral uterine arteries with abnormal tumor vascularity supplying the uterine fibroids bilaterally. The left internal iliac artery was selected with Cobra 2 catheter. The left uterine artery was selected with a microcatheter. Angiograms were repeated at every stage confirming placement. Angiograms demonstrate hypervascular appearance of the fibroid. Embolization was performed first from the left uterine artery using a combination of 500 to 700 um and 700 to 900 um embospheres. Embolization was carried out to near stasis in the uterine artery. The Cobra catheter was withdrawn into the right internal iliac artery. A microcatheter was used to select the mid right uterine artery. Embolization was repeated in identical fashion. Following this catheters were removed. A closure device was used to achieve hemostasis in the right common femoral puncture site. Sterile dressings were applied. The patient tolerated the procedure well without immediate complication. Total fluoroscopy time: 25.1 minutes Dose area product: 755 Gycm2 The procedure was performed under conscious sedation, including continuous cardiopulmonary monitoring via a dedicated sedation nurse. Face to face sedation time : 1 hour Impression : Bilateral uterine artery embolization for symptomatic fibroids. Patient will be admitted for observation, pain management.
--- NOTE | 2018-08-10 15:23 | PDOC ---
Provider Note Provider Note IR NOTE pod 0 sp uterine artery embolization. Patient tolerated procedure well without immediate complication. Admitted for pain control. Has morphine [employer] for today. Depending on how tonight goes will try to switch to hydrocodone in am and ambulate. DC possible tomorrow if patient continues to do well. DANIELA DIAZ MD Aug 10, 2018 15:23
[2018-08-10] MEDS: KETOROLAC 30 MG/ML VIAL. IV SCH (22:36)
[2018-08-11 03:30] VITALS: BP 122/64
[2018-08-11] MEDS: KETOROLAC 30 MG/ML VIAL. IV SCH (06:20)
[2018-08-11] MEDS: IV NORMAL SALINE 1000ML BAG 1,000 ML IV SCH (06:21)
[2018-08-11 06:37] VITALS: BP 137/84
--- NOTE | 2018-08-11 08:10 | PDOC ---
Provider Note Provider Note IR Doing well Tolerating PO Cramping peaked last night and is improving. Will DC jones, try to ambulate, and continue to encourage PO fluids. Likely DC this afternoon DANIELA DIAZ MD Aug 11, 2018 08:10
[2018-08-11] MEDS ORDERED: HYDROcodone/APAP 5/325MG 1 TAB TABLET PO PRN (08:15)
[2018-08-11] MEDS: DOCUSATE SODIUM 100 MG CAPSULE. PO SCH (08:36)
[2018-08-11 12:21] VITALS: BP 132/78
[2018-08-11] MEDS ORDERED: DOCU-109 PO (12:38)
[2018-08-11] MEDS ORDERED: HYDR-2761 PO (12:38)
[2018-08-11] MEDS ORDERED: LEVO500T59 PO (12:38)
[2018-08-11] MEDS ORDERED: IBUP-1227 PO (12:38)
--- NOTE | 2018-08-11 12:40 | DISCH ---
DISCHARGE INSTRUCTIONS Condition on Discharge Condition on Discharge: Stable Activity After Discharge Activity Instructions for Disc: Avoid exertion, Walk in house Bathing Instructions: Shower-keep dressing dry Lifting Instructions after Dis: No heavy lifting Exercise Instruction after Dis: Progress as tolerated Driving Instructions after Dis: Do not drive today Weight Bearing Status after Di: As tolerated Diet after Discharge Diet after Discharge: Regular Wound Incision Care Wound/Incision Care: Change dressing Checks after Discharge Checks after discharge: Check your Temp as needed Contacting the DR. after DC Call your doctor for: Fever greater than 100 Follow-Up Follow up with: Your OBGYN Treatment/Equipment after DC Adaptive Equipment Issued: None DANIELA DIAZ MD Aug 11, 2018 12:40
[2018-08-11] MEDS ORDERED: IBUPROFEN 200 MG TABLET. PO SCH (13:00)
[2018-08-11 13:53] VITALS: BP 117/51
[2018-08-11] MEDS ORDERED: LACTOBACILLUS RHAMNOSUS GG 1 CAPSULE. PO SCH (21:00)
--- NOTE | 2018-08-16 11:23 | PDOC2 ---
INTERV RADIOLOGY CONSULT INPT Date of Consult 08.10.18 HISTORY AND PHYSICAL Reason for Consult Uterine fibroid embolization Identification/Chief Complaint Menorrhagia History of Present Illness Reason for Visit Mrs Steinberg is a very pleasant 48 year old female with longstanding menorrhagia complicated by intermittent severe anemia. She has some pelvic pain. Denies urinary symptoms or constipation. MRI shows large uterine fibroids, most prominent anteriorly. No possibility of per patent. No recent infections. Past Medical History Cardiovascular: No pertinent hx Pulmonary: No pertinent hx Heme/Onc: Anemia NOS, Iron deficiency Anemia Hepatobiliary: No pertinent hx Psych: No pertinent hx Musculoskeletal: low back pain Rheumatologic: No pertinent hx Infectious disease: No pertinent hx ENT: No pertinent hx Renal/: No pertinent hx Endocrine: No pertinent hx Dermatology: No pertinent hx Past Surgical History Tubal Ligation Current Problem List (1) Uterine anomaly Current Medications Current Medications Sodium Chloride 1,000 ml @ 100 mls/hr Q10H IV Last administered on 08/11/18at 06 :21; Start 08/10/18 at 09:03; Stop 08/11/18 at 08:11; Status DC Levofloxacin/ Dextrose 100 ml @ 100 mls/hr 1X ONCE IV Last administered on 08/10/18at 09:15; Start 08/10/18 at 09:15; Stop 08/11/18 at 08:33; Status DC Ketorolac Tromethamine (Toradol 30mg Vial) 30 mg 1X ONCE IV Last administered on 08/10/18at 10:21; Start 08/10/18 at 09:15; Stop 08/11/18 at 08:33; Status DC Promethazine HCl (Phenergan) 12.5 mg 1X ONCE PO Last administered on 08/10/18at 09:15; Start 08/10/18 at 09:15; Stop 08/10/18 at 09:19; Status DC Iodixanol (Visipaque 320) 100 ml STK-MED ONCE .ROUTE ; Start 08/10/18 at 10:45; Stop 08/11/18 at 08:33; Status DC Lidocaine/Sodium Bicarbonate (Buffered Lidocaine 1%) 3 ml STK-MED ONCE .ROUTE ; Start 08/10/18 at 10:45; Stop 08/11/18 at 08:33; Status DC Heparin Sodium/ Sodium Chloride 1,500 ml @ As Directed STK-MED ONCE .ROUTE ; Start 08/10/18 at 10:45; Stop 08/11/18 at 08:33; Status DC Midazolam HCl (Versed) 5 mg STK-MED ONCE .ROUTE ; Start 08/10/18 at 10:55; Stop 08/11/18 at 08:33; Status DC Fentanyl Citrate (Fentanyl 5ml Vial) 250 mcg STK-MED ONCE .ROUTE ; Start at 10:56; Stop 08/11/18 at 08:33; Status DC Heparin Sodium/ Sodium Chloride (HEPARIN for ARTERIAL LINE FLUSH) 1,000 unit 1X ONCE IART Last administered on 08/10/18 13:00; Start 08/10/18 at 11:45; Stop 08/10/18 at 11:46; Status DC Heparin Sodium/ Sodium Chloride (HEPARIN for ARTERIAL LINE FLUSH) 1,000 unit 1X ONCE IART Last administered on 08/10/18 13:00; Start 08/10/18 at 11:45; Stop 08/10/18 at 11:46; Status DC Lidocaine/Sodium Bicarbonate (Buffered Lidocaine 1%) 10 ml 1X ONCE IJ Last administered on 08/10/18 13:00; Start 08/10/18 at 11:45; Stop 08/11/18 at 08:33; Status DC Midazolam HCl (Versed) 3 mg 1X ONCE IV Last administered on 08/10/18 12:59; Start 08/10/18 at 11:45; Stop 08/11/18 at 08:33; Status DC Fentanyl Citrate (Fentanyl 5ml Vial) 100 mcg 1X ONCE IV Last administered on 12:59; Start 08/10/18 at 11:45; Stop 08/11/18 at 08:33; Status DC Iodixanol (Visipaque 320) 100 ml 1X ONCE IART Last administered on 08/10/18 12 :58; Start 08/10/18 at 11:45; Stop 08/10/18 at 11:46; Status DC Iohexol (Omnipaque 240 Mg/ml) 50 ml 1X ONCE IART ; Start 08/10/18 at 11:45; Stop 08/11/18 at 08:33; Status DC Info (CONTRAST GIVEN -- Rx MONITORING) 1 each PRN DAILY PRN MC SEE COMMENTS; Start 08/10/18 at 11:45; Stop 08/11/18 at 08:33; Status DC Docusate Sodium (Colace) 100 mg Q12HR PO Last administered on 08/11/18at 08:36; Start 08/10/18 at 13:00; Stop 08/11/18 at 15:01; Status DC Ketorolac Tromethamine (Toradol 30mg Vial) 30 mg Q8HRS IV ; Start 08/10/18 at 14: 00; Stop 08/10/18 at 16:57; Status DC Ondansetron HCl (Zofran) 8 mg Q8HRS IV Last administered on 08/10/18at 22:35; Start 08/10/18 at 14:00; Stop 08/11/18 at 15:01; Status DC Sodium Chloride 1,000 ml @ 125 mls/hr Q8H PRN IV SEE COMMENTS; Start 08/10/18 at 12:45; Stop 08/11/18 at 08:33; Status DC Levofloxacin (Levaquin) 500 mg DAILY06 PO Last administered on 08/11/18at 08:35; Start 08/11/18 at 06:00; Stop 08/11/18 at 15:01; Status DC Morphine Sulfate 30 ml @ 0 mls/hr CONT PRN PRN IV PER PROTOCOL Last administered on 08/10/18at 13:52; Start 08/10/18 at 13:00; Stop 08/11/18 at 08:09; Status DC Naloxone HCl (Narcan) 0.1 mg PRN Q2MIN PRN IV SEE INSTRUCTIONS; Start 08/10/18 at 13:00; Stop 08/11/18 at 15:01; Status DC Ketorolac Tromethamine (Toradol 30mg Vial) 30 mg Q8HRS IV Last administered on 08/11/18at 06:20; Start 08/10/18 at 18:00; Stop 08/11/18 at 15:01; Status DC Ibuprofen (Motrin) 600 mg [id number] PO Last administered on 08/11/18at 13:28; Start 08/11/18 at 13:00; Stop 08/11/18 at 15:01; Status DC Acetaminophen/ Hydrocodone Bitart (Lortab 5/325) 2 tab PRN Q6HRS PRN PO PAIN; Start 08/11/18 at 08:15; Stop 08/11/18 at 15:01; Status DC Lactobacillus Rhamnosus (Culturelle) 1 cap BID PO ; Start 08/11/18 at 21:00; Stop 08/11/18 at 21:00; Status DC Active Scripts Active Reported Ferrous Sulfate 325 Mg Tablet 325 Mg PO DAILY Naproxen 500 Mg Tablet.dr 1 Tab PO PRN BID PRN Tylenol (Acetaminophen) 325 Mg Tablet 1 Tab PO PRN Q4HRS Allergies Coded Allergies: Penicillins (Verified Allergy, Intermediate, Rash, 03/04/17) Physical Exam Cardiovascular RRR Chest Clear Mental Status WNL Vascular No abnormalities. Normal femoral and pedal pulses Vitals See Chart Labs Current Medications Medications (Trade) Dose Ordered Sig/Ruiz Route PRN Reason Start Time Stop Time Status Last Admin Dose Admin Sodium Chloride 1,000 ml @ 100 mls/hr Q10H IV 08/10/18 09:03 08/11/18 08:11 DC 08/11/18 06:21 Levofloxacin/ Dextrose 100 ml @ 100 mls/hr 1X ONCE IV 08/10/18 09:15 08/11/18 08:33 DC 08/10/18 09:15 Ketorolac Tromethamine (Toradol 30mg Vial) 30 mg 1X ONCE IV 08/10/18 09:15 08/11/18 08:33 DC 08/10/18 10:21 Promethazine HCl (Phenergan) 12.5 mg 1X ONCE PO 08/10/18 09:15 08/10/18 09:19 DC 08/10/18 09:15 Iodixanol (Visipaque 320) 100 ml STK-MED ONCE .ROUTE 08/10/18 10:45 08/11/18 08:33 DC Lidocaine/Sodium Bicarbonate (Buffered Lidocaine 1%) 3 ml STK-MED ONCE .ROUTE 08/10/18 10:45 08/11/18 08:33 DC Heparin Sodium/ Sodium Chloride 1,500 ml @ As Directed STK-MED ONCE .ROUTE 08/10/18 10:45 08/11/18 08:33 DC Midazolam HCl (Versed) 5 mg STK-MED ONCE .ROUTE 08/10/18 10:55 08/11/18 08:33 DC Fentanyl Citrate (Fentanyl 5ml Vial) 250 mcg STK-MED ONCE .ROUTE 08/10/18 10:56 08/11/18 08:33 DC Heparin Sodium/ Sodium Chloride (HEPARIN for ARTERIAL LINE FLUSH) 1,000 unit 1X ONCE IART 08/10/18 11:45 08/10/18 11:46 DC 08/10/18 13:00 Heparin Sodium/ Sodium Chloride (HEPARIN for ARTERIAL LINE FLUSH) 1,000 unit 1X ONCE IART 08/10/18 11:45 08/10/18 11:46 DC 08/10/18 13:00 Lidocaine/Sodium Bicarbonate (Buffered Lidocaine 1%) 10 ml 1X ONCE IJ 08/10/18 11:45 08/11/18 08:33 DC 08/10/18 13:00 Midazolam HCl (Versed) 3 mg 1X ONCE IV 08/10/18 11:45 08/11/18 08:33 DC 08/10/18 12:59 Fentanyl Citrate (Fentanyl 5ml Vial) 100 mcg 1X ONCE IV 08/10/18 11:45 08/11/18 08:33 DC 08/10/18 12:59 Iodixanol (Visipaque 320) 100 ml 1X ONCE IART 08/10/18 11:45 08/10/18 11:46 DC 08/10/18 12:58 Iohexol (Omnipaque 240 Mg/ml) 50 ml 1X ONCE IART 08/10/18 11:45 08/11/18 08:33 DC Info (CONTRAST GIVEN -- Rx MONITORING) 1 each PRN DAILY PRN MC SEE COMMENTS 08/10/18 11:45 08/11/18 08:33 DC Docusate Sodium (Colace) 100 mg Q12HR PO 08/10/18 13:00 08/11/18 15:01 DC 08/11/18 08:36 Ketorolac Tromethamine (Toradol 30mg Vial) 30 mg Q8HRS IV 08/10/18 14:00 08/10/18 16:57 DC Ondansetron HCl (Zofran) 8 mg Q8HRS IV 08/10/18 14:00 08/11/18 15:01 DC 08/10/18 22:35 Sodium Chloride 1,000 ml @ 125 mls/hr Q8H PRN IV SEE COMMENTS 08/10/18 12:45 08/11/18 08:33 DC Levofloxacin (Levaquin) 500 mg DAILY06 PO 08/11/18 06:00 08/11/18 15:01 DC 08/11/18 08:35 Morphine Sulfate 30 ml @ 0 mls/hr CONT PRN PRN IV PER PROTOCOL 08/10/18 13:00 08/11/18 08:09 DC 08/10/18 13:52 Naloxone HCl (Narcan) 0.1 mg PRN Q2MIN PRN IV SEE INSTRUCTIONS 08/10/18 13:00 08/11/18 15:01 DC Ketorolac Tromethamine (Toradol 30mg Vial) 30 mg Q8HRS IV 08/10/18 18:00 08/11/18 15:01 DC 08/11/18 06:20 Ibuprofen (Motrin) 600 mg [id number] PO 08/11/18 13:00 08/11/18 15:01 DC 08/11/18 13:28 Acetaminophen/ Hydrocodone Bitart (Lortab 5/325) 2 tab PRN Q6HRS PRN PO PAIN 08/11/18 08:15 08/11/18 15:01 DC Lactobacillus Rhamnosus (Culturelle) 1 cap BID PO 08/11/18 21:00 08/11/18 21:00 DC Assessment/Plan Uterine artery embolization bilaterally;. DANIELA DIAZ MD Aug 16, 2018 11:23
== END 2018-08-11 14:00 | disposition home or self-care (01) ==
LOC: INTRAD 09:02 → 3 NORTH 11:57
PROVIDERS: ADMIT Surgery; ATTEND Surgery
DX: D25.9 Leiomyoma of uterus, unspecified (principal); Z79.899 Other long term (current) drug therapy; Z88.0 Allergy status to penicillin
CPT/HCPCS: 36245; 36415; 37243; 75625; 75736; 76937; 80048; 84703; 85025; 85610; 85730; 96365; 96375; 96376; C1713; C1760; C1769; C1887; C1892; C1894; G0269; G0378; G0379; J1644; J1885; J1956; J2250; J2270; J2405; J3010; J7030; Q0169; Q9967; 99152; 99153